=== PATIENT | female | born 1985 | race Asian ===

== ENCOUNTER 2017-07-10 00:59 | Emergency (ER) | payer MEDICAID, OTHER ==
[~2017-07-10] VITALS: Ht 157.5 cm; Wt 73.5 kg
--- NOTE | 2017-07-10 01:05 | NUR ---
To bed 1 a 32 yo female bibself with c/o allergy symptoms with bruce eyelid swelling and throat itchiness. Patiens is aaox4, ambulatory with steady gait, nad noted, denies sob. vss. comfort measures rendered.
--- NOTE | 2017-07-10 01:08 | NUR ---
Dr Ko at bedside to eval.
[2017-07-10] MEDS ORDERED: DEXAMETHASONE SOD PHOSPHATE 10 MG/ML VIAL ONE (01:16)
--- NOTE | 2017-07-10 01:20 | NUR ---
medicated patient as ordered by Dr Ko.
[2017-07-10] MEDS ORDERED: DEXAMETHASONE SOD PHOSPHATE 4 MG/ML VIAL IM ONE (01:30)
--- NOTE | 2017-07-10 02:29 | NUR ---
patient is comfortably sleeping at this time. vss.
--- NOTE | 2017-07-10 02:35 | NUR ---
Patient discharged to home in stable condition. Written and verbal after care instructions given. Patient verbalizes understanding of instruction. Patient is ambulatory with steady gait, no further complaints.
[2017-07-10 02:36] VITALS: BP 138/80
== END 2017-07-10 02:36 | disposition home or self-care (01) ==
LOC: ER 01:03
DX: T78.40XA Allergy, unspecified, initial encounter (principal); E11.9 Type 2 diabetes mellitus without complications; J45.909 Unspecified asthma, uncomplicated
CPT/HCPCS: A4606; J1100; Z7610